=== PATIENT | male | born 1945 | race Caucasian/White ===

== ENCOUNTER → 2024-01-20 09:35 | Outpatient (REF) | payer MEDICARE, SELFPAY ==
[2024-01-20 10:35] LABS: HDL Cholesterol 42 mg/dl; LDL Cholesterol, Calculated 67 mg/dl; Total Cholesterol 130 mg/dl (50-199); Triglyceride 106 mg/dl (10-149); Very Low Density Lipoprotein 21 mg/dl (0-30)
== END ==
LOC: OLABN 09:35
PROVIDERS: ATTENDING PHYSICIAN Student in an Organized Health Care Education/Training Program
DX: E78.5 Hyperlipidemia, unspecified (principal)
CPT/HCPCS: 36415; 80061

== ENCOUNTER → 2024-02-24 10:35 | Outpatient (REF) | payer MEDICARE, SELFPAY ==
[2024-02-24 13:46] LABS: HDL Cholesterol 40 mg/dl; LDL Cholesterol, Calculated 51 mg/dl; Total Cholesterol 110 mg/dl (50-199); Triglyceride 95 mg/dl (10-149); Very Low Density Lipoprotein 19 mg/dl (0-30)
== END ==
LOC: CLAB 10:35
PROVIDERS: ATTENDING PHYSICIAN Student in an Organized Health Care Education/Training Program
DX: E78.5 Hyperlipidemia, unspecified (principal)
CPT/HCPCS: 36415; 80061

== ENCOUNTER 2024-04-02 08:22 | Day surgery (SDC) | payer MEDICARE, SELFPAY ==
[2024-04-02] VITALS (22 sets, daily range): BP systolic 127–159; BP diastolic 63–84; BMI 23.5
[2024-04-02 08:57] LABS: Hematocrit 41.8 % (39.0-52.0); Hemoglobin 13.6 g/dL (13.0-18.0); Mean Corp Hgb Conc. 32.5 g/dL (33.0-37.0); Mean Corpuscular Hgb 31.5 pg (27.0-31.0); Mean Corpuscular Volume 96.8 fL (80.0-94.0); Mean Platelet Volume 8.9 fL (7.4-10.4); Platelet Count 199 10^3/uL (130-400); Red Blood Cell Count 4.32 10^6/uL (4.70-6.10); Red Cell Dist. Width 13.4 % (11.5-14.5); White Blood Cell Count 6.1 10^3/uL (4.8-10.8)
[2024-04-02 09:10] LABS: Blood Urea Nitrogen 16 mg/dl (9-20); Carbon Dioxide 28 mmol/L (22-30); Chloride 105 mmol/L (98-107); Glucose 168 mg/dl (70-99); Potassium 4.2 mmol/L (3.5-5.1); Sodium 144 mmol/L (135-145); eGFR > 60.00
[2024-04-02 09:16] LABS: INR 1.04; PT 13.4 Sec (11.4-14.6)
[2024-04-02 09:17] LABS: APTT 37.7 Sec (23.4-35.0)
[2024-04-02 09:26] LABS: Glucose - Point of Care 150 mg/dl (70-99)
--- NOTE | 2024-04-02 11:42 | W.SUR.PREOP ---
Pre-Operative Surgical Note
-
I have examined this patient prior to the performance of the scheduled procedure.
The patient's condition is unchanged from the time of the current History and
Physical and the patient is able to undergo the scheduled procedure.
--- NOTE | 2024-04-02 13:57 | W.SUR.POST ---
Surgical Immediate Post Op
Note
Pre Op Diagnosis: PAD
Post Op Diagnosis: PAD
Procedure Performed:Right lower extremity arteriogram with balloon angioplasty and stent to right SFA and above knee popliteal, balloon angioplasty with DCB to right below knee popliteal
Primary Surgeon: Jackson John MD
Secondary Surgeons: N/A
Anesthesia: MAC
Estimated Blood Loss: Less than 2 ml
Fluids:See Anesthesia flowsheet
Drains/Shunts: N/A
Specimens/Cultures: N/A
Doppler/Duplex/Angio (Y/N): Y
Complications: None
Operative Findings: +1 palpable pulse
[2024-04-02 14:16] LABS: Glucose - Point of Care 132 mg/dl (70-99)
[2024-04-02] MEDS: PLAVIX 300 MG PO (15:31)
[2024-04-02] MEDS: NSS 1000 IV (15:32)
[2024-04-02 16:05] LABS: Glucose - Point of Care 123 mg/dl (70-99)
--- NOTE | 2024-04-03 10:15 | OR.RPT ---
Operative Report
Operative Report
PROCEDURE DATE: 04/02/2024
Preoperative diagnosis: Chronic limb threatening ischemia right lower extremity.
Postoperative diagnosis: Same
Procedure:
1. Duplex assisted left common femoral artery cannulation.
2. Aortogram and pelvic angiogram.
3. Right lower extremity arteriogram with third order vessel catheterization of right peroneal artery via left common femoral artery puncture.
4. Recanalization of occluded long segment superficial femoral artery with angioplasty of superficial femoral artery and above-knee popliteal artery with 4 mm x 20 cm long segment angioplasty balloon with overlapping inflations.
5. Placement of Zilver PTX overlapping drug-eluting self-expanding stents right [id number] popliteal artery and superficial femoral artery with 6 mm x 140 mm (x 2) and 6 mm x 60 mm.
6. Drug-coated balloon angioplasty of below-knee popliteal artery with 4 mm x 40 mm Bard Lutonix drug-coated balloon.
7. Left femoral angiogram.
8. Supervision and interpretation.
Surgeon: Alvaro
Bulk Intake Worker: None
Complications: None
Anesthesia: Local, sedation
Fluoroscopy:
14 min
60 mGy
12.25 Gy.cm2
Indications for procedure:
Tissue loss right lateral foot in the setting of a bunion deformity. Therefore had architecture of the foot issues that predispose to ulcerations, but had evidence of peripheral arterial disease that was contributing to nonhealing.
Risk/benefits/alternatives of revascularization all fully discussed. Patient understood all wish to proceed.
Description of procedure:
Patient was identified, brought to the operating room. Placed on the table in the supine position. After the adequate administration of anesthesia, the patient was prepped and draped in the standard surgical fashion. A standard preoperative
timeout was undertaken and everybody was in agreement with the plan.
The left common femoral artery was accessed with a micropuncture kit under direct duplex ultrasound guidance. A 5 Dominican sheath was then advanced over a 0.035 inch wire, and a mckinnon's hook catheter was advanced into the abdominal aorta.
Aortogram and pelvic angiogram was obtained. Findings as follows:
Infrarenal aorta and iliac vessels: Patent infrarenal aorta with significant eccentric calcification but no significant stenosis. Similarly bilateral common and external iliac arteries were patent with significant eccentric calcified plaque
throughout. No significant stenoses identified.
Using a floppy angled hydrophilic wire, the right common femoral artery was cannulated and the catheter was advanced. Right lower extremity arteriogram was obtained. Findings as follows:
Common femoral artery: Patent with some eccentric calcified plaque but no significant stenosis. Some luminal irregularities noted.
Profunda femoris artery: Patent with no significant stenosis, but luminal irregularities and calcified plaque noted.
Superficial femoral artery: Patent for about 3 to 4 cm and then occluded completely with formed collateral at the site of occlusion. Reconstituted flow in the distal superficial femoral artery noted but some disease/occlusion just beyond there into
the above-knee popliteal artery.
Popliteal artery: Reconstituted above-knee popliteal artery generally patent but diffuse luminal irregularities throughout the above, behind knee and below knee popliteal artery. There is a focal high-grade stenosis in the below-knee popliteal
artery.
Anterior tibial artery: Patent diffusely diseased with luminal irregularities throughout. Some areas of possible mild to moderate stenosis. Somewhat diminutive in size so slightly difficult to say degree of stenosis.
Tibial peroneal trunk: Patent with no significant stenosis. Continuous flow into the peroneal artery which appeared to be the more dominant runoff vessel to the ankle with collateralization to reconstitute distal PT/plantar. All artery somewhat
diseased/diffusely atherosclerotic.
Posterior tibial artery: Chronically occluded with reconstitution at the level of the foot.
At this point I selectively cannulated the superficial femoral artery and then exchanged for a Storq wire and then an up and over 6 Dominican sheath. The patient was given an appropriate dose of heparin 6000 units. Next using subintimal technique
using a flopping of hydrophilic wire and a CXI catheter I was able to traverse the area of occlusion throughout the SFA and regain luminal entry into the distal SFA/above-knee popliteal artery. I was able to pass my catheter and confirmed with
angiogram that I was in the true lumen. Next I exchanged out for a Storq wire. I then performed long segment angioplasty with a 4 mm x 20 cm angioplasty balloon of the above-knee popliteal artery and SFA. Next I used a Zilver PTX overlapping
drug-eluting self-expanding stents. 6 mm x 140 mm was placed distally in the above-knee popliteal artery into the SFA. Overlapping with that was a 6 mm x 140 mm stent in the SFA. Overlapping most proximally was a 6 mm x 60 mm into the patent SFA
proximally. These were all post angioplastied with a 5 mm angioplasty balloon. In addition I used a 6 mm angioplasty balloon in the midportion as there appeared to be some stenosis/residual calcified plaque. Completion angiogram demonstrated
excellent flow through the entire stented SFA and popliteal artery. Now I gained wire access into the peroneal artery under roadmap assisted guidance. I then performed balloon angioplasty of the stenosis in the below-knee popliteal artery with a 4
mm x 40 mm drug-coated Bard Lutonix balloon with prolonged inflation. Completion angiogram demonstrated resolution of the stenosis with stable flow into the runoff. At this point is very satisfied. I then withdrew my sheath to the left distal
external iliac artery. Angiogram demonstrated good puncture in the left common femoral artery. The SFA appeared chronically occluded on that side. The wires and catheters were withdrawn. The patient was taken to recovery room where the sheath
was withdrawn and manual pressure was applied to the puncture site. Hemostasis was fully achieved. The patient had a palpable 1+/2+ DP pulse on the right side upon completion.
The patient tolerated procedure well.
== END 2024-04-02 19:45 ==
LOC: CATH 08:22
PROVIDERS: ATTENDING PHYSICIAN Surgery Vascular Surgery; FAMILY PHYSICIAN Student in an Organized Health Care Education/Training Program; OTHER PHYSICIAN Internal Medicine Cardiovascular Disease
DX: I70.235 Atherosclerosis of native arteries of right leg with ulceration of other part of foot (principal); L97.519 Non-pressure chronic ulcer of other part of right foot with unspecified severity; M21.611 Bunion of right foot; Z79.82 Long term (current) use of aspirin; Z79.84 Long term (current) use of oral hypoglycemic drugs; I10 Essential (primary) hypertension; E78.00 Pure hypercholesterolemia, unspecified; I11.0 Hypertensive heart disease with heart failure; I50.22 Chronic systolic (congestive) heart failure; I25.10 Atherosclerotic heart disease of native coronary artery without angina pectoris; E11.9 Type 2 diabetes mellitus without complications; I48.19 Other persistent atrial fibrillation
CPT/HCPCS: 37226; 75625; 75710; 80048; 82962; 85027; 85610; 85730; 86850; 86900; 86901; 93005; C1725; C1769; C1874; C1887; C1894; Q9967

== ENCOUNTER → 2024-05-13 12:06 | Outpatient (REF) | payer MEDICARE, SELFPAY ==
[2024-05-13 14:10] LABS: Glycohemoglobin (HgbA1c) 6.9 % (4.0-5.6)
== END ==
LOC: OLABN 12:06
PROVIDERS: ATTENDING PHYSICIAN Student in an Organized Health Care Education/Training Program
DX: E11.9 Type 2 diabetes mellitus without complications (principal); Z79.84 Long term (current) use of oral hypoglycemic drugs
CPT/HCPCS: 36415; 83036

== ENCOUNTER → 2024-05-15 07:49 | Outpatient (REF) | payer MEDICARE, SELFPAY | LOC: DHVS 07:49 | PROVIDERS: ATTENDING PHYSICIAN Surgery Vascular Surgery; FAMILY PHYSICIAN Student in an Organized Health Care Education/Training Program | DX: I73.9 Peripheral vascular disease, unspecified (principal) | CPT/HCPCS: 93922; 93925 ==

== ENCOUNTER → 2024-05-28 06:27 | Outpatient (REF) | payer MEDICARE, SELFPAY ==
[2024-05-28 11:26] LABS: ALT (SGPT) 10 U/L (0-50); AST (SGOT) 16 U/L (17-59); Albumin 3.7 g/dl (3.5-5.0); Alkaline Phosphatase 71 U/L (38-126); Direct Bilirubin 0.2 mg/dl (0.0-0.4); Total Bilirubin 0.5 mg/dl (0.2-1.3); Total Protein 6.1 g/dl (6.3-8.2)
[2024-05-28 11:56] LABS: TSH 3.62 uIU/ml (0.47-4.68)
== END ==
LOC: OLABN 06:27
PROVIDERS: ATTENDING PHYSICIAN Student in an Organized Health Care Education/Training Program
DX: E03.2 Hypothyroidism due to medicaments and other exogenous substances (principal); E03.9 Hypothyroidism, unspecified
CPT/HCPCS: 36415; 80076; 84443

== ENCOUNTER 2024-09-23 01:02 | Inpatient (IN) | payer MEDICARE, SELFPAY ==
[2024-09-22 22:21] VITALS: BP 142/71
--- NOTE | 2024-09-22 22:41 | ED.GENMED ---
History of Present Illness
General
Chief Complaint: Breathing Problem
Source: patient, ambulance crew and long term
Time Seen by Provider: 09/22/24 22:28
History of Present Illness
History of Present Illness:
This a pleasant 78-year-old male who resides at [facility] that presents to the emergency department with shortness of breath that has been present for the last hour. According to pulse ox by the long term and EMS, his room air oxygen
saturation was 70%. He states that he is in no distress but EMS confirmed that he was working harder breathing. Patient is a comfort measures only DNR patient but states he is okay with oxygen via nonrebreather and medications to help with his
breathing. Patient states that he has no complaints, but his oxygen does drop off of the nonrebreather. Patient is a smoker. He smokes 1 pack/day. He does have a history of COPD, emphysema, and multiple cases of pneumonia. He also has
congestive heart failure coronary artery disease.
Past History
Past History
ED Past Medical History: Arrthythmia (AFlutter), CHF, COPD, CVA, HTN, Hypercholesterolemia, Other (C Diff dx 10/2015) and Other (CHF); Negative Asthma, CAD or Cancer
Social History
Tobacco: Former smoker
Alcohol: Former
Drug: None
Personal:
Living: with family
Employment: Employed
Family History
Family History: Adopted
Phy Exam
General Physical Exam
General Presentation: moderate distress
General age: appears stated age
General Skin: warm and dry
General Habitus: elderly and frail
General Mental: alert
General Hydration: appears well hydrated
Pulmonary Exam
Pulmonary Exam: accessory muscle use, decreased breath sounds, generalized wheezing and respiratory distress
Oxygen Status: non-rebreather mask
Cough: coarse cough
Respirations: accessory muscle use and moderate effort
Breath Sounds: Rhonchi: generalized
Gastrointestinal Exam
Gastrointestinal Exam: normal bowel sounds, non tender and soft
Palpation: left upper quadrant: No tenderness, left lower quadrant: No tenderness, right upper quadrant: No tenderness, right lower quadrant: No tenderness and generalized: No tenderness
Neurological Exam
Neurological Exam: alert and oriented x3
Musculoskeletal Exam
Musculoskeletal Exam: full ROM and no edema (No edema bilaterally lower extremity)
Skin Exam
Skin Exam: normal color and warm/dry
Psychiatric Exam
Psychiatric Exam: normal mood/affect
Scores
Heart Failure Risk
Heart Failure Risk Score: Yes
History of Stroke or TIA: Yes
History of intubation for respiratory distress: No
Heart rate on ED arrival >/= 110: No
SaO2 <90% on arrival on room air: Yes
HR >/=110 during 3min walk test (or too ill to perform test): Yes
ECG has acute ischemic changes: No
Urea >/=12mmol/L (BUN 33.6mg/dL): No
Serum CO2>/=35mmol/L: No
Troponin I or T elevated to PA Level (0.4mg/dL): No
NT-proBNP >/=5,000ng/L (5,000pg/ml): Yes
HF Risk Score: 5
Admission Status: VERY HIGH RISK 39.8% Consider admission to hospital
Sepsis
Sepsis Screening
Sepsis Assessment: Sepsis
Sepsis Screen
Sepsis Screen: Sepsis
Date: 09/24/24
Time: 22:08
Course
Orders/Labs/Results
Orders:
Orders
09/22/24 22:19
EKG [Electrocardiogram (*1)] Urgent
Reason for Study: Shortness of Breath
09/22/24 22:20
EKG- Treatment ONCE
09/22/24 22:27
CBC/With Diff [Complete Blood Count/With Diff] Urgent
Pro-BNP [NT-proBNP] Urgent
Troponin I Urgent
Comment: ADD ON
09/22/24 22:30
CR Chest Portable - 1 View Urgent
Comment:
Reason For Exam: resp distress
Reason Study Needs to be Portable: Patient Unstable
09/22/24 22:32
COVID-19 Antigen Urgent
Source: Nasal Swab
Influenza A+B Rapid Molecular Urgent
ANABELLE Source: Nasal Swab
Specimen Description:
09/22/24 22:35
Add On- LAB Urgent
Tests Added?: troponin
09/22/24 23:02
Comprehensive Metabolic Panel Urgent
09/22/24 23:27
Procalcitonin Urgent
PCT Algorithmm Indication: Sepsis
09/22/24 23:28
Aztreonam [Azactam] 2,000 mg IV NOW STA
09/22/24 23:30
Lactic Acid Q4H
Comment: CANCEL 2nd LACTIC ACID IF 1st LACTIC ACID IS LESS THAN 2
09/22/24 23:42
Furosemide [Lasix] 40 mg IV NOW STA
09/23/24 00:33
Venous Blood Gas Urgent
%Oxygen/Room Air: 4 lpm
09/23/24 00:48
Admit/Transfer Patient As Directed
Co-Sign Provider:
Level of Care: Inpatient admission
Assign to:: Telemetry
Physician / Group: Jerry
Diagnosis: Acute Hypoxemic Respiratory Failure
Reason for Telemetry: Arrhythmia
Date to Stop Telemetry: 09/26/24
Time to Stop Telemetry: 11:00
Reason for Hospitalization: Acute Hypoxemic Respiratory Failure
Expected length of stay greater than two midnights?: Yes
ELOS- Estimated Length of Stay in days: 3
I certify the patient meets the requirements for IP care: Yes
PRN Pain Medication Management As Directed
May give lesser potent ordered pain med per pt: Yes
preference::
Protocol:: Medication orders for pain may be administered in a
manner that supports deferring to patient preference
when the pt is:
- Requesting an ordered lesser potent pain medication.
Least to most potent pain medications are defined
as: acetaminophen < NSAID < tramadol < opioids
(morphine, oxycodone, hydromorphone).
- Requesting a lesser dose of the same medication IF
ORDERED.
- Requesting a less intrusive route of administration
if both routes are prescribed by the provider (PO <
IV).
09/23/24 00:52
Code Status As Directed
Resuscitation Status: Do not resuscitate
Reached after discussion with pt or family/Healthcare POA: Yes
09/23/24 00:53
DNR Bracelet Application ONCE
09/23/24 00:56
Ipratropium/Albuterol Sulfate [Duoneb] 3 ml INH R NOW ONE
09/23/24 00:58
Vancomycin [Vancocin] 1,500 mg 0.9% Sodium Chloride 500 ml [Nss] 500 ml IV NOW
09/23/24 03:11
Acetaminophen [Tylenol] 650 mg PO Q4HPRN PRN
Albuterol Nebs [Ventolin Nebules] 2.5 mg INH R Q4HPRN PRN
Bupropion(12Hr)Sustain Release [WELLBUTRIN SR (12 hour sustained release)] 100 mg PO Q12H
Dexamethasone Sod Phosphate [Decadron] 4 mg IV Q8H
Dextrose 50%-Water [Dextrose 50% Syringe] 12.5 grams IV [id number] PRN
Glucagon [GlucaGen] 1 mg IM PRN PRN
Morphine Sulfate 2 mg IV Q4HPRN PRN
09/23/24 03:11
Activity As Directed
Activity Level: Ambulate
With Assistance
Bedside Glucose Monitoring As Directed
Frequency: AC&HS
Additional Instructions:: Change to q6h if pt on TPN, tube feeding or not eating
Bladder Scan As Directed
Follow Bladder Retention/Intermittent Cath Algorithm?: Yes
PRN if no void in __ hours: 6
Frequency: Per Retention Algorithm
If Bladder Scan Result >: 400
then:: Straight cath
EKG with chest pain [ECG as needed] As Directed
ECG as needed for:: Chest Pain
I/O [Intake/ Output] As Directed
Frequency: Per unit guidelines
Straight Cath As Directed
Frequency: Per Retention Algorithm
Additional Instructions: straight cath as needed per acute urinary retention algorithm for 24 hrs
Additional Instructions: for bladder scan greater than 400 mL
Vital Signs As Directed
Frequency: Per unit guidelines
Weight As Directed
Frequency: Daily
Chest PT [Rx Chest Pt] [RESP] Routine
Special Instructions: BID
Incentive Spirometry [Rx Incentive Spirometry] [RESP] Routine
Frequency: q1h while awake
Oxygen Therapy [O2 Therapy] [RESP] Routine
Titrate/Wean O2 to maintain O2 sat greater than (%): 94
DX Deep Vein Thrombosis Video Routine
09/23/24 03:57
Lactic Acid Q4H
Comment: CANCEL 2nd LACTIC ACID IF 1st LACTIC ACID IS LESS THAN 2
TSH Reflex To Free T4 Routine
Troponin I Q6H
09/23/24 06:00
EKG [Electrocardiogram (*1)] IN AM
Reason for Study: Chest Pain
09/23/24 06:16
Basic Metabolic Panel IN AM
Complete Blood Count/No Diff IN AM
Glycohemoglobin (HgbA1c) IN AM
09/23/24 07:30
Insulin Aspart Corrective Low [Novolog Flexpen-Low Resistance] See Protocol SC AC
09/23/24 08:00
Amiodarone [Pacerone] 200 mg PO DAILY
Aspirin Chewable [Low Strength Aspirin] 81 mg PO DAILY
Clopidogrel Bisulfate [Plavix] 75 mg PO DAILY
Doxycycline [Vibramycin] 100 mg PO Q12
Heparin 5,000 units SC Q12
Ipratropium/Albuterol Sulfate [Duoneb] 3 ml INH R QID
09/23/24 08:30
Metoprolol [Lopressor] 50 mg PO BID@0830,1830
09/23/24 09:34
Troponin I Q6H
09/23/24 10:00
CefTRIAXone [Rocephin] 1,000 mg IV Q24H
09/23/24 18:30
Atorvastatin [Lipitor] 40 mg PO DAILY@1830
09/24/24 Breakfast
Regular
At Your Request: Limited Participation
Does patient need a safe tray?: No
09/26/24 11:00
DC Protocol for Telemetry ONCE
Abnormal Lab Results
09/22/24 09/22/24 09/23/24
22:27 23:02 00:01
WBC 14.4 H 10^3/uL
(4.8-10.8)
RBC 3.86 L 10^6/uL
(4.70-6.10)
Hgb 12.4 L g/dL
(13.0-18.0)
Hct 37.9 L %
(39.0-52.0)
MCV 98.2 H fL
(80.0-94.0)
MCH 32.1 H pg
(27.0-31.0)
MCHC 32.7 L g/dL
(33.0-37.0)
RDW 14.7 H %
(11.5-14.5)
Abs Immat Gran (auto) 0.1 H 10^3/uL
(0-0.05)
Absolute Neuts (auto) 12.9 H 10^3/uL
(1.4-6.5)
Absolute Lymphs (auto) 0.9 L 10^3/uL
(1.2-3.4)
Neutrophils % 89.5 H %
(42.2-75.2)
Lymphocytes % 6.5 L %
(20.5-51.1)
VBG pO2
Carbon Dioxide 20 L mmol/L
(22-30)
Glucose 258 H mg/dl
(70-99)
Lactic Acid 3.5 H mmol/L
(0.7-2.0)
AST 15 L U/L
(17-59)
Troponin I 0.037 H* ng/ml
Total Protein 6.1 L g/dl
(6.3-8.2)
Procalcitonin 2.91 H* ng/ml
(0.0-0.25)
09/23/24
00:33
WBC
RBC
Hgb
Hct
MCV
MCH
MCHC
RDW
Abs Immat Gran (auto)
Absolute Neuts (auto)
Absolute Lymphs (auto)
Neutrophils %
Lymphocytes %
VBG pO2 83 H mmHg
(30-50)
Carbon Dioxide
Glucose
Lactic Acid
AST
Troponin I
Total Protein
Procalcitonin
09/22/24 22:27
09/22/24 23:02
Vital Signs
Initial and Last Documented VS:
Initial Vital Signs
Pulse Ox
94
09/22/24 22:18
Last Documented Vital Signs
Temp Pulse Resp BP Pulse Ox
98.0 F 60 16 122/50 90
09/24/24 19:16 09/24/24 19:31 09/24/24 19:31 09/24/24 19:16 09/24/24 22:05
*Radiology
Radiology exam reviewed: preliminary read by ED provider (Pulmonary vascular congestion, right lower lobe pneumonia)
*Pulse Oximetry
Patient hypoxic: yes
Comment: 70% on room air
*Critical Care Note
Total Time (30-74mins, 75-104mins- exclusive of procedures): 30
comment:
Critical care statement: A total of 30 minutes of critical care time was provided for this patient. This time is separate from time utilized to perform the aforementioned documented procedures. Aggregate critical care time includes only time
during which I was engaged in work directly related to the patient's care, as described above, whether at the bedside or elsewhere in the Emergency Department.
ED Attending Note
-
Portions of this chart may have been created with voice recognition software.� Occasional wrong word or��sound alike� substitutions may have occurred due to the inherent limitations of voice recognition software.
Discharge Plan
Departure
Patient Disposition: Admit
Date of Disposition: 09/22/24
Time of Disposition: 23:54
Presentation/result/management discussed w/ accepting MD/DO: Hospitalist
Discharge Problem:
CHF (congestive heart failure), Pneumonia, Acute dyspnea, DNR (do not resuscitate)
Interventions
Interventions:
*Risk Screen - Suicide Last Done: 09/22/24 22:21
*General Assessment Last Done: 09/22/24 22:21
*Neglect/Abuse Screening Last Done: 09/22/24 22:21
ED- Fall Risk Assessment Last Done: 09/23/24 03:05
*ED COVID-19 Vaccine History Last Done: 09/23/24 00:04
*Nursing Disposition Last Done: 09/23/24 05:02
ED- Cardiac Assessment Last Done: 09/23/24 00:04
ED- Pulmonary Assessment Last Done: 09/23/24 03:50
Discharge Date and Time
Discharge Date/Time: 09/23/24 04:46
[2024-09-22 22:44] LABS: % Basophils 0.3 % (0-2); % Eosinophils 0.1 % (0-6); % Immature Granulocytes 0.5 % (0-0.5); % Lymphocytes 6.5 % (20.5-51.1); % Monocytes 3.1 % (1.7-9.3); % Neutrophils 89.5 % (42.2-75.2); Absolute Immature Granulocytes 0.1 10^3/uL (0-0.05); Absolute Lymphocytes 0.9 10^3/uL (1.2-3.4); Absolute Monocytes 0.4 10^3/uL (0.1-0.6); Absolute Neutrophils 12.9 10^3/uL (1.4-6.5); Hematocrit 37.9 % (39.0-52.0); Hemoglobin 12.4 g/dL (13.0-18.0); Mean Corp Hgb Conc. 32.7 g/dL (33.0-37.0); Mean Corpuscular Hgb 32.1 pg (27.0-31.0); Mean Corpuscular Volume 98.2 fL (80.0-94.0); Mean Platelet Volume 8.8 fL (7.4-10.4); Nucleated Red Blood Cells % 0 % (-); Platelet Count 186 10^3/uL (130-400); Red Blood Cell Count 3.86 10^6/uL (4.70-6.10); Red Cell Dist. Width 14.7 % (11.5-14.5); White Blood Cell Count 14.4 10^3/uL (4.8-10.8)
[2024-09-22 23:03] LABS: COVID-19 Antigen Negative (Negative)
[2024-09-22 23:06] LABS: NT-proBNP 6590 pg/ml
[2024-09-22 23:17] LABS: Troponin I 0.037 ng/ml
[2024-09-22 23:25] LABS: ALT (SGPT) 13 U/L (0-50); AST (SGOT) 15 U/L (17-59); Albumin 3.5 g/dl (3.5-5.0); Alkaline Phosphatase 74 U/L (38-126); Blood Urea Nitrogen 18 mg/dl (9-20); Calcium 8.7 mg/dl (8.4-10.2); Carbon Dioxide 20 mmol/L (22-30); Chloride 107 mmol/L (98-107); Glucose 258 mg/dl (70-99); Potassium 4.4 mmol/L (3.5-5.1); Sodium 143 mmol/L (135-145); Total Bilirubin 0.7 mg/dl (0.2-1.3); Total Protein 6.1 g/dl (6.3-8.2); eGFR > 60.00
[2024-09-22 23:36] VITALS: BP 118/79
[2024-09-22] MEDS: LASIX 40 MG IV (23:49)
[2024-09-22] MEDS: AZACTAM 2000 MG IV (23:49)
[2024-09-23] VITALS (30 sets, daily range): BP systolic 99–138; BP diastolic 43–98; BMI 20.1
[2024-09-23 00:28] LABS: Lactic Acid 3.5 mmol/L (0.7-2.0)
--- NOTE | 2024-09-23 00:33 | HPS.HSE ---
Family Physician
-
Family Physician: Simeon Marks, DO
Chief Complaint
-
SOB
History of Present Illness
Patient is a 78y M with PMH significant for ASCVD, HFrEF, COPD, DM-II and prior CVA who presents to ED from local [place] for evaluation of SOB. Patient states that he started to cough yesterday. This evening he informed [place] staff that he did not
feel well. He was noted to have evident increased work of breathing and audible wheezing. SpO2 on usual 2 lpm of O2 was 84% per [place] report. Patient was transported to the ED for further evaluation and treatment.
Little additional history is forthcoming from the patient. He appears in obvious distress, but denies any dyspnea when asked.
He notes cough x 1 day that has been non-productive. He denies any pain.
Medical History
Past Medical History
Past Medical History: Reports Other
Additional Past Medical History:
ASCVD (CAD, CVA, PAD, Carotid Disease)
Hypertension
Chronic HFrEF (32% November 2022)
Persistent Atrial Fibrillation
Left Atrial Thrombus
DM-II
COPD
Chronic Hypoxemic Respiratory Failure (2 lpm)
Depression
Dementia with Behavioral Disturbance
Past Surgical History: Reports Other
Additional Past Surgical History:
RLE Angio with Stent and Balloon Angioplasty (03/2024)
T&A
Herniorrhaphy
Septoplasty
AICD / PPM Placement
Vasectomy
Cataracts
Social History
Tobacco: Former Smoker
Alcohol: Occasional
Drug: None
Living: Longterm
Family History
Family History: Not pertinent
Allergies / Home Medications
Allergies reflects when Allergies were last updated in [employer].
Home Medications with original date entered in [employer]
Allergy/Medication List:
Allergies
Allergy/AdvReac Type Severity Reaction Status Date / Time
amoxicillin Allergy Intermediate flushing, Verified 09/22/24 22:19
dizziness
Penicillins Allergy Intermediate flushing, Verified 09/22/24 22:19
dizziness
Home Medications
acetaminophen 325 mg tablet 650 mg PO Q4HPRN PRN mild pain/fever>100.4 11/29/22
ascorbic acid (vitamin C) 500 mg tablet (Vitamin C) 500 mg PO DAILY Supplement 11/29/22
aspirin 81 mg chewable tablet 81 mg PO DAILY Blood clot prevention/tx 11/29/22
atorvastatin 40 mg tablet 40 mg PO DAILY@183 High cholesterol 11/29/22
bisacodyl 10 mg rectal suppository (OneLAX Bisacodyl) 10 mg [place] DAILYPRN PRN q3 days when no BM and MOM in ineffective 11/29/22
ferrous sulfate 325 mg (65 mg iron) tablet 325 mg PO DAILY Supplement 11/29/22
furosemide 20 mg tablet 20 mg PO DAILY@183 HTN 11/29/22
glimepiride 1 mg tablet 1 mg PO DAILY DMII 11/29/22
magnesium hydroxide 400 mg/5 mL oral suspension (Milk of Magnesia) 30 ml PO HSPRN PRN constipation 11/29/22
metformin 500 mg tablet 500 mg PO BID@0830,1829 DMII 11/29/22
amiodarone 200 mg tablet 200 mg PO DAILY Atrial Fibrillation 03/25/24
bupropion HCl 100 mg tablet,12 hr sustained-release 100 mg PO Q12H Major Depressive Disorder 03/25/24
famotidine 20 mg tablet (Pepcid AC Maximum Strength) 20 mg PO BID@0830,1830 GERD 03/25/24
fluticasone fur. 100 mcg-umeclid 62.5 mcg-vilant 25 mcg inhalat.powder (Trelegy Ellipta) 1 inh inhalation DAILY COPD 03/25/24
melatonin 3 mg tablet 3 mg PO HS insomnia 03/25/24
metoprolol tartrate 50 mg tablet 50 mg PO BID@0830,183 HTN 03/25/24
potassium chloride 20 mEq tablet,extended release 20 meq PO DAILY@1630 Hypokalemia 03/25/24
clopidogrel 75 mg tablet 75 mg PO DAILY #90 tabs 04/02/24
carbamide peroxide 6.5 % ear drops (Debrox) 2 drp EACH EAR SUFR@2030 09/22/24
donepezil 10 mg tablet 10 mg PO HS 09/22/24
nystatin 100,000 unit/mL oral suspension 5 ml PO BID@0830,1830 09/22/24
simethicone 80 mg chewable tablet 80 mg PO TID@0800,1300,1700 09/22/24
Review of Systems
-
History Source: Patient (Limited ROS due to dementia)
Respiratory: Reports Cough; Denies Trouble Breathing
Cardiac: Denies Chest Pain
Abdomen/GI: Denies Nausea, Vomiting or Diarrhea
Physical Exam
Vital Signs
Vital Signs
Temp Pulse Resp BP Pulse Ox
98.2 F 82 29 118/79 97
09/22/24 22:29 09/22/24 23:49 09/22/24 23:15 09/22/24 23:49 09/22/24 23:15
Physical Exam
General: Other (78y M in moderate respiratory distress with tachypnea and increased WOB.)
HEENT: Moist mucous membranes and PERRLA
Respiratory: Other (Scattered expiratory wheezes through. Bibasilar rales about 1/3 up. No rhonchi.)
Cardiac: S1/S2 and Regular Rhythm; No Murmur
GI: Soft, Non Tender, Non Distended and Normal Bowel Sounds
Musculoskeletal: No Clubbing, No Cyanosis and No Edema
Neuro: Awake and Alert
Laboratory Results
-
09/22/24 22:27
09/22/24 23:02
Laboratory Results
Lactic Acid 3.5 mmol/L (0.7-2.0) H 09/23/24 00:01
Total Bilirubin 0.7 mg/dl (0.2-1.3) 09/22/24 23:02
AST 15 U/L (17-59) L 09/22/24 23:02
ALT 13 U/L (0-50) 09/22/24 23:02
Alkaline Phosphatase 74 U/L (38-126) 09/22/24 23:02
Troponin I 0.037 ng/ml H* 09/22/24 22:27
Impression/Plan
-
A/P: Patient is a 78y M with PMH significant for ASCVD, HFrEF, A-Fib and COPD who presents to ED from local [place] for evaluation of SOB.
Acute on Chronic Hypoxemic Respiratory Failure
- Admit for further evaluation and treatment.
- Etiology for decompensation is possibly multifactorial.
- Patient typically on 2 lpm of supplemental O2 at [place].
- Initially required NRB here in the ED - now weaned to 4 lpm with SpO2 90-95%.
- Patient with cough x 24 hours, leukocytosis and elevated lactate level.
- Also with elevated ProBNP - although his weight is decreased from prior and no evidence of edema / hypervolemia on exam.
- Scattered wheezing on exam which could be COPD or cardiac wheezing.
- CXR with increased interstitial markings c/w atypical pneumonia, pulm edema, etc.
- COVID / Flu are negative in the ED.
- VBG done showing no evidence of hypercapnia.
- Continue O2 support.
- Address individual issues as noted below.
- Note patient is DNR and 'comfort only' per Advanced Directive.
COPD with Acute Exacerbation
Atypical Pneumonia
Sepsis secondary to the above
- With cough, wheeze and increased work of breathing will treat for AE-COPD.
- IV steroids, nebs ATC and PRN.
- Continue O2 as noted above.
- Empiric abx for now with ceftriaxone and doxycycline.
- Procalcitonin markedly elevated at 2.91 consistent with infectious process.
- Patient with leukocytosis, tachypnea, hypoxemia and elevated lactate level c/w sepsis.
- Follow for clinical improvement.
Chronic HFrEF
Ischemic Cardiomyopathy
- Patient does not appear volume overloaded on exam - despite BNP elevation from prior.
- Weight (68kg) is decreased from prior (74).
- Will hold further diuretic therapy for now.
- Follow I/Os, daily weights and monitor for changes in respiratory status.
- Hold KCl supplement while diuretics on hold.
- Most recent Echo (November 2022) with LVEF = 32%, severe LA dilation and moderate RA dilation.
ASCVD (CAD, CVA, Carotid Disease, PAD)
Non-[place] Troponin Elevation
- Troponin 0.037 on initial lab. EKG is 100% paced.
- Likely non-[place] elevation secondary top acute illness / sepsis.
- Follow to peak.
- Continue usual CV med regimen including DAPT, statin, etc.
Persistent Atrial Fibrillation
- 100% paced as noted above.
- Continue amiodarone.
- Patient is not on chronic OAC - has had MANUEL occlusion with Watchman device.
DM-II
- Stable. Hold PO med regimen for now.
- Follow glucose and cover with SSI as needed.
- Update A1C.
Depression
Senile Dementia with Behavioral Disturbance
- Stable. Not agitated at present.
- NH notes some behaviors. Continue Wellbutrin.
- Monitor for any acute agitation / delirium during hospital stay.
DVT Prophylaxis: Subcut Heparin
Code Status: DNR / Comfort according to patient and NH record / POLST. Given patient wishes / POC - would consider Cardiology eval / ICD deactivation.
[2024-09-23 00:38] LABS: Venous Blood Gas HCO3 22.7 mmol/L (22-27); Venous Blood Gas O2 Sat % 97.1 %; Venous Blood Gas pCO2 42 mmHg (35-48); Venous Blood Gas pH 7.34 (7.32-7.43); Venous Blood Gas pO2 83 mmHg (30-50)
[2024-09-23 00:40] LABS: Venous Blood Gas O2 Therapy 4 LPM
[2024-09-23 00:54] LABS: Procalcitonin 2.91 ng/ml (0.0-0.25)
[2024-09-23] MEDS: VANCOCIN 530 MG IV (01:55)
[2024-09-23] MEDS: DUONEB 3 ML INH ×4 (01:59→19:45)
[2024-09-23 03:57] LABS: Glucose - Point of Care 223 mg/dl (70-99)
[2024-09-23] MEDS: DECADRON 4 MG IV ×3 (04:08→19:45)
[2024-09-23 05:13] LABS: Lactic Acid 4.9 mmol/L (0.7-2.0)
[2024-09-23 05:41] LABS: TSH Reflex To Free T4 2.22 uIU/ml (0.47-4.68)
[2024-09-23 06:28] LABS: Hematocrit 40.8 % (39.0-52.0); Hemoglobin 13.2 g/dL (13.0-18.0); Mean Corp Hgb Conc. 32.4 g/dL (33.0-37.0); Mean Corpuscular Hgb 31.4 pg (27.0-31.0); Mean Corpuscular Volume 96.9 fL (80.0-94.0); Mean Platelet Volume 8.9 fL (7.4-10.4); Platelet Count 190 10^3/uL (130-400); Red Blood Cell Count 4.21 10^6/uL (4.70-6.10); Red Cell Dist. Width 14.9 % (11.5-14.5); White Blood Cell Count 17.9 10^3/uL (4.8-10.8)
[2024-09-23 06:57] LABS: Blood Urea Nitrogen 18 mg/dl (9-20); Calcium 8.9 mg/dl (8.4-10.2); Carbon Dioxide 24 mmol/L (22-30); Chloride 103 mmol/L (98-107); Estimated Creatinine Clearance 53 ml/min; Glucose 206 mg/dl (70-99); Potassium 4.3 mmol/L (3.5-5.1); Sodium 143 mmol/L (135-145); eGFR > 60.00
[2024-09-23] MEDS: LOPRESSOR 50 MG PO ×2 (08:11→17:33)
[2024-09-23] MEDS: VIBRAMYCIN 100 MG PO ×2 (08:11→19:46)
[2024-09-23] MEDS: PACERONE 200 MG PO (08:11)
[2024-09-23] MEDS: LOW STRENGTH ASPIRIN 81 MG PO (08:11)
[2024-09-23] MEDS: PLAVIX 75 MG PO (08:11)
[2024-09-23] MEDS: WELLBUTRIN SR (12 hour sustained release) 100 MG PO ×2 (08:12→19:52)
[2024-09-23] MEDS: HEPARIN 5000 UNITS SC ×2 (08:20→19:46)
[2024-09-23] MEDS: NOVOLOG FLEXPEN-LOW RESISTANCE SC ×2 (09:34→13:18)
[2024-09-23] MEDS: ROCEPHIN 1000 MG IV (09:50)
[2024-09-23] MEDS: STERILE WATER FOR INJECTION 10 ML IV (09:51)
[2024-09-23 09:59] LABS: Lactic Acid 5.4 mmol/L (0.7-2.0)
[2024-09-23 10:09] LABS: Troponin I 0.031 ng/ml
--- NOTE | 2024-09-23 10:49 | CM ---
Addendum entered by Torres Eden 09/23/24 15:06:
CM consult for hospice care noted. pt preferred hospice.
A referral to hospice made.
Original Note:
CM following re: discharge planning.
Reviewed pt's chart, met with pt.
Pt is a 78 year old male, admitted with primary dx of Acute on Chronic Hypoxemic Respiratory Failure.
Pt reports he has been living at [facility] for 1 year, is a [facility] care resident, has supportive spouse POA and 2 children. Pt reports he mostly uses a wheelchair, ambulates with a walker with assistance. CM spoke to [facility] community center coordinator and
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
Requested pt's clinical faxed to [facility] via [employer].
PCP: Simeon Marks
Pharmacy: [facility]
D/C plan: return back to [facility] when medically stable.
CM will follow with discharge plan updates as hospitalization progresses
--- NOTE | 2024-09-23 13:22 | PTCARENOTE ---
pt noted to be intermittently coughing after swallowing at breakfast. Attending notified, Speech consult. at bedside. updated. and pt adamant that they want him to have 'his coffee no matter what'. discussed goals of care in with
attending. pt. continues to refuse insulin. CB in reach, appears to be in no respiratory distress on 4L.
--- NOTE | 2024-09-23 14:00 | PTOTSP ---
Speech Therapy Swallowing Assessment
Patient with history of aspiration and PEG tube following previous strokes. He was advanced to regular solids and thin liquids between last VSE in 2019 and current hospitalization. Pt grossly tolerated solids despite loose lower denture. Overt signs
of aspiration with thin liquids. Small sips and chin tuck significantly reduced coughing episodes with thin liquid. The patient is not interested in completing another video swallow study nor modifying his diet beyond easy to chew. He and
understand the risks. Patient and verbalized understanding of likely chronic aspiration and the associated health risks.
Recommend
1. Continue regular solids and thin liquids (exclude hard to chew foods).
2. Aspiration precautions.
3. Meds whole in applesauce.
4. Single sips, chin tuck
5. Aspiration precautions.
[2024-09-23 14:31] LABS: Glycohemoglobin (HgbA1c) 6.9 % (4.0-5.6)
--- NOTE | 2024-09-23 14:33 | PTCARENOTE ---
St recommendations communicated to attending. Pt and spouse understand risk of aspiration. Pt wants to eat and is not interested in altered diet or VSE. Aspiration precautions. Tele bed obtained. and pt in agreement with POC. CB in reach. no
change in assessment.
--- NOTE | 2024-09-23 14:43 | W.PN.UPDATE ---
Update Note
Progress Note Update
failed speech therapy - having aspiration; patient AAOX3 - does not want anything done; can send back with hospice.
--- NOTE | 2024-09-23 14:49 | W.PN.HOSP.TC ---
Today's Communication/Plan
-
dc ready to hospice for comfort care
Assessment / Plan
Assessment / Plan
Physical Exam
General: Other (78y M in no acute distress)
HEENT: Moist mucous membranes and PERRLA
Respiratory: Other (mild wheezing b/l)
Cardiac: S1/S2 and Regular Rhythm; No Murmur
GI: Soft, Non Tender, Non Distended and Normal Bowel Sounds
Musculoskeletal: No Clubbing, No Cyanosis and No Edema
Neuro: Awake and Alert
ignificant for ASCVD, HFrEF, A-Fib and COPD who presents to ED from local [place] for evaluation of SOB.
Acute on Chronic Hypoxemic Respiratory Failure
- Admit for further evaluation and treatment.
- most likely aspiration pneumonia
-see plan below
-comfort
COPD with Acute Exacerbation
Aspiration Pneumonia
Sepsis secondary to the above
- With cough, wheeze and increased work of breathing will treat for AE-COPD.
- IV steroids, nebs ATC and PRN.
- Continue O2 as noted above.
- Empiric abx for now with ceftriaxone and doxycycline.
- Procalcitonin markedly elevated at 2.91 consistent with infectious process.
- Patient with leukocytosis, tachypnea, hypoxemia and elevated lactate level c/w sepsis.
- Follow for clinical improvement.
- speech therapy: aspirates; despite this patient wants to eat; and patient understand risks
Chronic HFrEF
Ischemic Cardiomyopathy
- Patient does not appear volume overloaded on exam - despite BNP elevation from prior.
- Weight (68kg) is decreased from prior (74).
- Will hold further diuretic therapy for now.
- Follow I/Os, daily weights and monitor for changes in respiratory status.
- Hold KCl supplement while diuretics on hold.
- Most recent Echo (November 2022) with LVEF = 32%, severe LA dilation and moderate RA dilation.
ASCVD (CAD, CVA, Carotid Disease, PAD)
Non-[place] Troponin Elevation
- Troponin 0.037 on initial lab. EKG is 100% paced.
- Likely non-[place] elevation secondary top acute illness / sepsis.
- Follow to peak.
- Continue usual CV med regimen including DAPT, statin, etc.
Persistent Atrial Fibrillation
- 100% paced as noted above.
- Continue amiodarone.
- Patient is not on chronic OAC - has had MANUEL occlusion with Watchman device.
DM-II
- Stable. Hold PO med regimen for now.
- Follow glucose and cover with SSI as needed.
- Update A1C.
Depression
Senile Dementia with Behavioral Disturbance
- Stable. Not agitated at present.
- NH notes some behaviors. Continue Wellbutrin.
- Monitor for any acute agitation / delirium during hospital stay.
DVT Prophylaxis: Subcut Heparin
Code Status: DNR / Comfort according to patient and NH record / POLST. Given patient wishes / POC - would consider Cardiology eval / ICD deactivation.
Anticipated Discharge: Today
Subjective/Interval History
-
Date of Service: September 23, 2024
Once fluid, despite aspiration. Patient and understand risks
Objective Data
-
Labs:
Laboratory Results
09/23/24
06:16
WBC 17.9 H
Hgb 13.2
Hct 40.8
Plt Count 190
Sodium 143
Potassium 4.3
Chloride 103
Carbon Dioxide 24
BUN 18
Creatinine 1.1
Glucose 206 H
Calcium 8.9
Vital Signs:
Vital Signs
Temp Pulse Resp BP Pulse Ox
97.8 F 70 21 112/67 96
09/23/24 11:08 09/23/24 14:15 09/23/24 14:15 09/23/24 09:45 09/23/24 14:29
Review of Systems
-
History Source: Patient
All other systems: Not reviewed unless documented
Physical Exam
-
General: No Apparent Distress
HEENT: Moist Mucous Membranes and PERRLA
Respiratory: Clear to Auscultation and Other (Left upper chest AICD dressing intact)
Cardiac: Regular Rhythm and S1/S2; Negative Murmur, Rub or JVD
GI: Soft, Nontender, Nondistended and Normal Bowel Sounds
Musculoskeletal: No Edema
Neuro: Oriented, No Motor Deficits and Nonfocal/Grossly Intact
Data Reviewed
-
Diagnostic Radiology: Image personally visualized and interpreted and Report Reviewed by me
[2024-09-23] MEDS: DUONEB INH (15:15)
--- NOTE | 2024-09-23 15:39 | HOSPNOTE ---
Referral received and patient will return to [place] with hospice services with . AICD will need to be turned off prior to returning to [place]. Patient and spouse are in agreement with hospice per attending. The plan is to discharge on Saturday and once
patient is back to [place] will admit onto hospice services. OOH DNR will be needed on chart for transport. Attending and CM aware of plan.
--- NOTE | 2024-09-23 15:56 | W.CAR.ICD ---
ICD Inactivation Request
-
[place] Notified: [employer]
The above vendor has been contacted to inactivate the patient's Implantable Cardioverter Defibrillator.
--- NOTE | 2024-09-23 15:57 | PTCARENOTE ---
Pt transferred to . Nurse to nurse report. Pt oriented to new surroundings. at bedside. CB in reach
[2024-09-23 17:28] LABS: Glucose - Point of Care 305 mg/dl (70-99)
[2024-09-23] MEDS: LIPITOR 40 MG PO (17:33)
[2024-09-23] MEDS: NOVOLOG FLEXPEN-LOW RESISTANCE 4 UNITS SC (18:03)
[2024-09-23] MEDS: MELATONIN 5 MG PO (21:10)
[2024-09-23 22:22] LABS: Glucose - Point of Care 244 mg/dl (70-99)
[2024-09-24] MEDS: DECADRON 4 MG IV (02:27)
[2024-09-24 03:12] VITALS: BP 104/49
[2024-09-24 05:47] VITALS: BMI 20.2
[2024-09-24 07:10] VITALS: BP 124/55
[2024-09-24] MEDS: DUONEB 3 ML INH ×4 (07:31→19:29)
[2024-09-24 07:45] LABS: Glucose - Point of Care 262 mg/dl (70-99)
--- NOTE | 2024-09-24 08:03 | W.ICD.INACTI ---
ICD Device Inactivated
-
The patient's ICD device has been inactivated by the vendor.
[2024-09-24] MEDS: PACERONE 200 MG PO (08:41)
[2024-09-24] MEDS: LOW STRENGTH ASPIRIN 81 MG PO (08:41)
[2024-09-24] MEDS: PLAVIX 75 MG PO (08:44)
[2024-09-24] MEDS: LOPRESSOR 50 MG PO ×2 (08:45→17:01)
[2024-09-24] MEDS: VIBRAMYCIN 100 MG PO (08:46)
[2024-09-24] MEDS: HEPARIN 5000 UNITS SC (08:51)
[2024-09-24] MEDS: WELLBUTRIN SR (12 hour sustained release) 100 MG PO ×2 (08:52→20:30)
[2024-09-24] MEDS: NOVOLOG FLEXPEN-LOW RESISTANCE 3 UNITS SC (08:53)
--- NOTE | 2024-09-24 10:47 | HOSPNOTE ---
Patient and spouse bedside. Discussed hospice and the philosophy and the patient and spouse are in agreement. OOH DNR will be needed on chart. Transport is scheduled for 10am. Oxygen was ordered and will be delivered. Case management and Attending
aware of plan. Once patient returns to [place] we will admit onto hospice services.
--- NOTE | 2024-09-24 10:52 | CM ---
Addendum entered by Darcy Liu 09/24/24 11:04:
Updated careport
Unit C2 at [place]
Original Note:
Patient seen at bedside
IMM explained & signed. In chart.
Will return to [facility] hospice to admit/spoke with Samantha addiction treatment counselor
[facility] DNR on chart NEEDS SIGNATURE - agus Causey to sign
Transportation forms on chart - scheduled for 10am tomorrow
Notified Hetal & Chapito at [facility]
PLAN: [facility] hospice to admit
Darryl Eng
Report #: [phone]
Fax #: [phone]
Ambulance transportation set for 10am tomorrow
[2024-09-24 11:25] VITALS: BP 121/46
[2024-09-24 11:46] LABS: Glucose - Point of Care 369 mg/dl (70-99)
[2024-09-24] MEDS: STERILE WATER FOR INJECTION IV (12:45)
[2024-09-24] MEDS: ROCEPHIN IV (12:45)
[2024-09-24] MEDS: DECADRON IV (12:45)
--- NOTE | 2024-09-24 13:10 | W.PN.HOSP.TC ---
Today's Communication/Plan
-
comfort measures
dc abx and steroids
Assessment / Plan
Assessment / Plan
Physical Exam
General: Other (78y M in no acute distress)
HEENT: Moist mucous membranes and PERRLA
Respiratory: Other (mild wheezing b/l)
Cardiac: S1/S2 and Regular Rhythm; No Murmur
GI: Soft, Non Tender, Non Distended and Normal Bowel Sounds
Musculoskeletal: No Clubbing, No Cyanosis and No Edema
Neuro: Awake and Alert
Acute on Chronic Hypoxemic Respiratory Failure
- Admit for further evaluation and treatment.
- most likely aspiration pneumonia
-see plan below
-comfort
COPD with Acute Exacerbation
Aspiration Pneumonia
Sepsis secondary to the above
- speech therapy: aspirates; despite this patient wants to eat; and patient understand risks
�Going on hospice, after discussion with and understanding continue risk of aspiration pneumonia with eating, along with goals of comfort�discontinue antibiotics, steroids
Chronic HFrEF
Ischemic Cardiomyopathy
Can resume Lasix for comfort
ASCVD (CAD, CVA, Carotid Disease, PAD)
Non-[place] Troponin Elevation
- Troponin 0.037 on initial lab. EKG is 100% paced.
- Likely non-[place] elevation secondary top acute illness / sepsis.
- Follow to [facility].
- Continue usual CV med regimen including DAPT, statin, etc.
Persistent Atrial Fibrillation
- 100% paced as noted above.
- Continue amiodarone.
- Patient is not on chronic OAC - has had MANUEL occlusion with Watchman device.
DM-II
- Stable. Hold PO med regimen for now.
- Follow glucose and cover with SSI as needed.
Depression
Senile Dementia with Behavioral Disturbance
- Stable. Not agitated at present.
- DC notes some behaviors. Continue Wellbutrin.
- Monitor for any acute agitation / delirium during hospital stay.
DVT Prophylaxis: Subcut Heparin
Code Status: DNR / Comfort according to patient and NH record / POLST. Given patient wishes / POC - ICd deactivation and dc to hospice tomorrow
Anticipated Discharge: Within 24 hours
Subjective/Interval History
-
Date of Service: September 24, 2024
No acute events overnight
Objective Data
-
Vital Signs:
Vital Signs
Temp Pulse Resp BP Pulse Ox
97.9 F 73 18 121/46 98
09/24/24 11:25 09/24/24 11:25 09/24/24 11:25 09/24/24 11:25 09/24/24 11:25
I&O
09/23/24 09/24/24 09/25/24
06:59 06:59 06:59
Intake Total 960 / 960
Output Total 450 / 450
Balance 510 / 510
Review of Systems
-
History Source: Patient
All other systems: Not reviewed unless documented
Physical Exam
-
General: No Apparent Distress
HEENT: Moist Mucous Membranes and PERRLA
Respiratory: Clear to Auscultation and Other (Left upper chest AICD dressing intact)
Cardiac: Regular Rhythm and S1/S2; Negative Murmur, Rub or JVD
GI: Soft, Nontender, Nondistended and Normal Bowel Sounds
Musculoskeletal: No Edema
Neuro: Oriented, No Motor Deficits and Nonfocal/Grossly Intact
Data Reviewed
-
Diagnostic Radiology: Image personally visualized and interpreted and Report Reviewed by me
--- NOTE | 2024-09-24 13:24 | PN.CDI ---
CDI
- -
CDI:
Physician Documentation Request
Admit Date: 09/23/24 01:02
Dear Doctor Nae,
Patient admitted with Sepsis secondary to aspiration pneumonia, acute on chronic hypoxemic respiratory failure and COPD exacerbation.
Lactic acid 09/23 high of 5.4
Please clarify which of the following most accurately describes the status of the patient's infection:
Severe Sepsis
- Sepsis with associated acute organ dysfunction, such as renal or respiratory failure
- Documentation should indicate the association between the sepsis and the organ dysfunction
Sepsis only
Other
Use of terms such as suspected, likely, concern for, or probable (associated with a specific diagnosis that is being evaluated, monitored, or treated as if it exists) are acceptable and can be coded in the inpatient setting, when documented at the
time of discharge.
Thank you,
Jessica Leavitt RN, BSN
CDI Specialist
tiger text
Please use your independent medical judgment in providing your response.
[2024-09-24] MEDS: NOVOLOG FLEXPEN-LOW RESISTANCE 5 UNITS SC (13:25)
[2024-09-24 15:20] VITALS: BP 134/53
[2024-09-24 16:48] LABS: Glucose - Point of Care 312 mg/dl (70-99)
[2024-09-24] MEDS: KCL 20 MEQ PO (16:59)
[2024-09-24] MEDS: MYLICON 80 MG PO (17:00)
[2024-09-24] MEDS: LIPITOR 40 MG PO (17:00)
[2024-09-24] MEDS: PEPCID 20 MG PO (17:00)
[2024-09-24] MEDS: LASIX 20 MG PO (17:01)
[2024-09-24] MEDS: MYCOSTATIN ORAL SUSPENSION PO (17:02)
[2024-09-24] MEDS: NOVOLOG FLEXPEN-LOW RESISTANCE SC ×2 (17:05→17:07)
[2024-09-24 19:16] VITALS: BP 122/50
[2024-09-24] MEDS: ARICEPT 10 MG PO (21:08)
[2024-09-24] MEDS: MELATONIN 5 MG PO (21:08)
[2024-09-24 21:13] LABS: Glucose - Point of Care 343 mg/dl (70-99)
--- NOTE | 2024-09-24 21:25 | PTCARENOTE ---
Pt got easily agitated about the channels in the hospital. AAOx2, forgetfully and anxious at times. Pt refuse to wear O2 and refused insulin for glucose of 343. Will continue w/ tx plan.
[2024-09-24 23:06] VITALS: BP 128/60
[2024-09-25 03:35] VITALS: BP 124/51
[2024-09-25 04:34] VITALS: BMI 20.4
[2024-09-25 07:00] VITALS: BP 147/52
[2024-09-25] MEDS: DUONEB 3 ML INH ×2 (07:42→11:05)
--- NOTE | 2024-09-25 07:46 | W.PN.HOSP.TC ---
Addendum entered and electronically signed by Prakash Soni MD 09/25/24 16:48:
Severe Sepsis
Addendum entered and electronically signed by Prakash Soni MD 09/25/24 16:46:
[id number]
Original Note:
Today's Communication/Plan
-
dc to hospice
ICD deactivated
Assessment / Plan
Assessment / Plan
Physical Exam
General: Other (78y M in no acute distress)
HEENT: Moist mucous membranes and PERRLA
Respiratory: Other (mild wheezing b/l)
Cardiac: S1/S2 and Regular Rhythm; No Murmur
GI: Soft, Non Tender, Non Distended and Normal Bowel Sounds
Musculoskeletal: No Clubbing, No Cyanosis and No Edema
Neuro: Awake and Alert
Acute on Chronic Hypoxemic Respiratory Failure
- Admit for further evaluation and treatment.
- most likely aspiration pneumonia
-see plan below
-comfort
COPD with Acute Exacerbation
Aspiration Pneumonia
Sepsis secondary to the above
- speech therapy: aspirates; despite this patient wants to eat; and patient understand risks
�Going on hospice, after discussion with and understanding continue risk of aspiration pneumonia with eating, along with goals of comfort�discontinue antibiotics, steroids
Chronic HFrEF
Ischemic Cardiomyopathy
Can resume Lasix for comfort
ASCVD (CAD, CVA, Carotid Disease, PAD)
Non-[place] Troponin Elevation
- Troponin 0.037 on initial lab. EKG is 100% paced.
- Likely non-[place] elevation secondary top acute illness / sepsis.
- Follow to [facility].
- Continue usual CV med regimen including DAPT, statin, etc.
Persistent Atrial Fibrillation
- 100% paced as noted above.
- Continue amiodarone.
- Patient is not on chronic OAC - has had MANUEL occlusion with Watchman device.
DM-II
- Stable. Hold PO med regimen for now.
- Follow glucose and cover with SSI as needed.
Depression
Senile Dementia with Behavioral Disturbance
- Stable. Not agitated at present.
- NH notes some behaviors. Continue Wellbutrin.
- Monitor for any acute agitation / delirium during hospital stay.
DVT Prophylaxis: Subcut Heparin
Code Status: DNR / Comfort according to patient and NH record / POLST. Given patient wishes / POC - ICd deactivated
More than 30 minutes spent in discharge including
Final examination of the patient
Summarizing hospital stay
Instructions for continuing care to all relevant caregivers
Preparation of discharge records, prescriptions, and referral forms
Total time spent (35 in minutes):
Anticipated Discharge: Today
Subjective/Interval History
-
Date of Service: September 25, 2024
No acute events overnight
Objective Data
-
Vital Signs:
Vital Signs
Temp Pulse Resp BP Pulse Ox
97.8 F 64 18 124/51 95
09/25/24 03:35 09/25/24 07:43 09/25/24 07:43 09/25/24 03:35 09/25/24 07:43
I&O
09/24/24 09/25/24 09/26/24
06:59 06:59 06:59
Intake Total 960 / 960 1400 / 1400
Output Total 450 / 450 960 / 960
Balance 510 / 510 440 / 440
Review of Systems
-
History Source: Patient
All other systems: Not reviewed unless documented
Data Reviewed
-
Diagnostic Radiology: Image personally visualized and interpreted and Report Reviewed by me
--- NOTE | 2024-09-25 07:48 | W.DS.TRANS ---
DC Summary - Specialty Department Supervisor
-
Discharge Instructions:
Sleep Apnea Risk Intermediate
Discharge Diagnosis/Procedures
Acute on Chronic Hypoxemic Respiratory Failure
COPD with Acute Exacerbation
Atypical Pneumonia
Sepsis
Additional Diets regular solids and thin liquids. exclude foods
that are hard. Aspiration precautions. Meds
whole in applesauce.
Activity As tolerated
Instructions:
Stand-Alone Forms:
Changes to Home Medications: No
Discharge Medications:
DC Medications w/original date entered in [employer]
acetaminophen 325 mg tablet 650 mg PO Q4HPRN PRN mild pain/fever>100.4 11/29/22
ascorbic acid (vitamin C) 500 mg tablet (Vitamin C) 500 mg PO DAILY Supplement 11/29/22
aspirin 81 mg chewable tablet 81 mg PO DAILY Blood clot prevention/tx 11/29/22
atorvastatin 40 mg tablet 40 mg PO DAILY@1829 High cholesterol 11/29/22
bisacodyl 10 mg rectal suppository (OneLAX Bisacodyl) 10 mg NE DAILYPRN PRN q3 days when no BM and MOM in ineffective 11/29/22
ferrous sulfate 325 mg (65 mg iron) tablet 325 mg PO DAILY Supplement 11/29/22
furosemide 20 mg tablet 20 mg PO DAILY@1830 HTN 11/29/22
glimepiride 1 mg tablet 1 mg PO DAILY DMII 11/29/22
magnesium hydroxide 400 mg/5 mL oral suspension (Milk of Magnesia) 30 ml PO HSPRN PRN constipation 11/29/22
metformin 500 mg tablet 500 mg PO BID@0830,1830 DMII 11/29/22
amiodarone 200 mg tablet 200 mg PO DAILY Atrial Fibrillation 03/25/24
bupropion HCl 100 mg tablet,12 hr sustained-release 100 mg PO Q12H Major Depressive Disorder 03/25/24
famotidine 20 mg tablet (Pepcid AC Maximum Strength) 20 mg PO BID@0830,1830 GERD 03/25/24
fluticasone fur. 100 mcg-umeclid 62.5 mcg-vilant 25 mcg inhalat.powder (Trelegy Ellipta) 1 inh inhalation DAILY COPD 03/25/24
melatonin 3 mg tablet 3 mg PO HS insomnia 03/25/24
metoprolol tartrate 50 mg tablet 50 mg PO BID@0830,1830 HTN 03/25/24
potassium chloride 20 mEq tablet,extended release 20 meq PO DAILY@1630 Hypokalemia 03/25/24
clopidogrel 75 mg tablet 75 mg PO DAILY #90 tabs 04/02/24
carbamide peroxide 6.5 % ear drops (Debrox) 2 drp EACH EAR SUFR@2030 EAR WAX 09/22/24
donepezil 10 mg tablet 10 mg PO HS Neurological Condition 09/22/24
nystatin 100,000 unit/mL oral suspension 5 ml PO BID@0830,1830 Infection 09/22/24
simethicone 80 mg chewable tablet 80 mg PO TID@0800,1300,1700 Gastrointestinal Issue 09/22/24
Home Medication Changes
na
Pending Results: No
[2024-09-25 08:13] LABS: Glucose - Point of Care 292 mg/dl (70-99)
[2024-09-25] MEDS: NOVOLOG FLEXPEN-LOW RESISTANCE 3 UNITS SC (08:45)
[2024-09-25] MEDS: PLAVIX 75 MG PO (08:46)
[2024-09-25] MEDS: PACERONE 200 MG PO (08:46)
[2024-09-25] MEDS: PEPCID 20 MG PO (08:49)
[2024-09-25] MEDS: MYLICON 80 MG PO (08:49)
[2024-09-25] MEDS: LOW STRENGTH ASPIRIN 81 MG PO (08:49)
[2024-09-25] MEDS: LOPRESSOR 50 MG PO (08:49)
[2024-09-25] MEDS: WELLBUTRIN SR (12 hour sustained release) 100 MG PO (08:52)
[2024-09-25] MEDS: MYCOSTATIN ORAL SUSPENSION 5 ML PO (08:52)
[2024-09-25 11:15] VITALS: BP 92/73
== END 2024-09-25 11:40 | disposition hospice, inpatient (51) | DRG 871 ==
LOC: 2 NORTH 01:02
PROVIDERS: Emergency Medicine; ADMITTING PHYSICIAN Hospitalist; ATTENDING PHYSICIAN Internal Medicine; EMERGENCY PHYSICIAN Student in an Organized Health Care Education/Training Program; FAMILY PHYSICIAN Student in an Organized Health Care Education/Training Program
DX: A41.9 Sepsis, unspecified organism (principal); J18.9 Pneumonia, unspecified organism; J96.21 Acute and chronic respiratory failure with hypoxia; J69.0 Pneumonitis due to inhalation of food and vomit; J44.1 Chronic obstructive pulmonary disease with (acute) exacerbation; I50.22 Chronic systolic (congestive) heart failure; Z66 Do not resuscitate; Z51.5 Encounter for palliative care; I48.19 Other persistent atrial fibrillation; F03.918 Unspecified dementia, unspecified severity, with other behavioral disturbance; F03.93 Unspecified dementia, unspecified severity, with mood disturbance; R65.20 Severe sepsis without septic shock; I11.0 Hypertensive heart disease with heart failure; I25.5 Ischemic cardiomyopathy; I25.10 Atherosclerotic heart disease of native coronary artery without angina pectoris; E11.51 Type 2 diabetes mellitus with diabetic peripheral angiopathy without gangrene; R79.89 Other specified abnormal findings of blood chemistry; E78.00 Pure hypercholesterolemia, unspecified; Z99.81 Dependence on supplemental oxygen; Z88.0 Allergy status to penicillin; Z79.82 Long term (current) use of aspirin; Z79.84 Long term (current) use of oral hypoglycemic drugs; Z79.02 Long term (current) use of antithrombotics/antiplatelets; Z79.899 Other long term (current) drug therapy; Z86.73 Personal history of transient ischemic attack (TIA), and cerebral infarction without residual deficits; Z87.891 Personal history of nicotine dependence; Z11.59 Encounter for screening for other viral diseases
CPT/HCPCS: 71045; 80048; 80053; 82805; 82962; 83036; 83605; 83880; 84145; 84443; 84484; 85025; 85027; 87070; 87502; 87811; 92610; 93005; 94640; 99285